=== PATIENT | male | born 1985 | race Caucasian/White ===

== ENCOUNTER 2019-04-13 09:42 | Emergency (ER) | payer SELFPAY ==
[2019-04-13] MEDS: LIDOCAINE 2% (MDV) 20 ML INJ INJ (10:07)
[2019-04-13] MEDS: KETOROLAC 30 MG INJ IM (10:33)
[2019-04-13] MEDS: DIPHTH/TET/ACEL PERTUSS (ADULT) 0.5 ML VIAL IM* ×2 (10:34→10:44)
== END 2019-04-13 10:57 | disposition home or self-care (01) ==
LOC: FTE 10:57
DX: S61.012A Laceration without foreign body of left thumb without damage to nail, initial encounter (principal); W26.0XXA Contact with knife, initial encounter; Y92.89 Other specified places as the place of occurrence of the external cause; Z23 Encounter for immunization
CPT/HCPCS: 12001; 90471; 90715; 96372; 99284-25

== ENCOUNTER 2019-04-15 10:07 | Emergency (ER) | payer SELFPAY | END 2019-04-15 11:17 | disposition home or self-care (01) | LOC: FTE 11:17 | DX: Z48.01 Encounter for change or removal of surgical wound dressing (principal) | CPT/HCPCS: 99281 ==

== ENCOUNTER 2019-04-20 14:25 | Emergency (ER) | payer SELFPAY | END 2019-04-20 15:32 | disposition home or self-care (01) | LOC: FTE 14:25 | DX: Z48.02 Encounter for removal of sutures (principal) | CPT/HCPCS: 99281 ==